=== PATIENT | female | born 1935 | race Caucasian/White ===

== ENCOUNTER 2025-09-29 12:13 | Inpatient (IN) | payer SELFPAY ==
[~2025-09-29] VITALS: Ht 152.4 cm; Wt 57.2 kg
[2025-09-29 12:17] VITALS: O2SAT 100
[2025-09-29] MEDS: KETOROLAC 15MG/ML VIAL IV ONE (13:20)
[2025-09-29 13:21] LABS: BASOPHILS % 0.4 % (0.0-2.0); EOSINOPHILS % 0.8 % (0.0-5.0); HEMATOCRIT. 46.4 % (36.0-48.0); HEMOGLOBIN. 15.1 g/dL (12.0-16.0); LYMPHOCYTES % 16.4 % (20.0-50.0); MEAN PLATELET VOLUME 9.8 fl (7.4-10.4); MONOCYTES % 7.5 % (2.0-8.0); NEUTROPHILS % 74.9 % (40.0-76.0); PLATELET 171 x1000/uL (130-400); RED BLOOD CELL COUNT 5.02 mill/uL (4.2-5.4); RED CELL DISTRIBUTION WIDTH 14.9 % (11.6-14.6)
[2025-09-29 13:33] LABS: INR 1.0
[2025-09-29 13:34] LABS: UREA NITROGEN BLOOD 30 mg/dL (9-23)
[2025-09-29 13:35] LABS: CREATININE 1.1 mg/dL (0.6-1.0)
[2025-09-29 13:36] LABS: ASPARTATE AMINOTRANSFERASE 20 IU/L (<34); BILIRUBIN TOTAL 0.9 mg/dL (0.1-1.0)
[2025-09-29 13:37] LABS: BILIRUBIN DIRECT 0.2 mg/dL (<=3.0); PROTEIN TOTAL 7.2 g/dL (6.0-8.3)
[2025-09-29] MEDS ORDERED: NALOXONE HCL 0.4MG/ML VIAL IV PRN (15:30)
[2025-09-29] MEDS ORDERED: IPRATROPIUM/ALBUTEROL 0.5-3(2.5)MG/3ML NEB HHN PRN (15:30)
[2025-09-29] MEDS ORDERED: DOCUSATE SODIUM 100MG CAPSULE PO PRN (15:30)
[2025-09-29] MEDS ORDERED: ACETAMINOPHEN 325MG TABLET PO PRN ×2 (15:30)
[2025-09-29] MEDS ORDERED: ONDANSETRON HCL 4MG/2ML INJ IV PRN (15:30)
[2025-09-29 20:00] VITALS: BP 123/58; PULSE 90; RESP 18; TEMP 36.2; O2SAT 95
[2025-09-29] MEDS: HYDROCODONE/ACETAMINOPHEN 5/325MG TABLET PO PRN (20:35)
[2025-09-29] MEDS: SODIUM CHLORIDE 0.9% 1,000 ML IV SCH (22:15)
[2025-09-29 22:20] VITALS: BP 125/58; PULSE 90; RESP 18; TEMP 36.2512
[2025-09-29] MEDS: MORPHINE SULFATE 4 MG/ML INJ (FOR IV/IM USE) IV PRN (23:06)
[2025-09-30] VITALS: BP 119/55; PULSE 79; RESP 19; TEMP 36.3; O2SAT 96
[2025-09-30 02:24] LABS: HEMATOCRIT. 39.6 % (36.0-48.0); HEMOGLOBIN. 13.0 g/dL (12.0-16.0); MEAN PLATELET VOLUME 9.5 fl (7.4-10.4); PLATELET 130 x1000/uL (130-400); RED BLOOD CELL COUNT 4.39 mill/uL (4.2-5.4); RED CELL DISTRIBUTION WIDTH 14.7 % (11.6-14.6)
[2025-09-30 04:00] VITALS: BP 111/63; PULSE 87; RESP 18; TEMP 36.7; O2SAT 95
[2025-09-30 04:11] LABS: BAND% 5.0 % (1.0-6.0); LYMPHOCYTES % MANUAL 7.0 % (20.0-60.0); MONOCYTES % MANUAL 3.0 % (2.0-8.0); NEUTROPHILS % MANUAL 85.0 % (45.0-75.0)
[2025-09-30 04:12] LABS: PLATELET ESTIMATE NORMAL
[2025-09-30 08:00] VITALS: BP 122/57; PULSE 78; RESP 12; TEMP 36.3; O2SAT 95
[2025-09-30 08:39] LABS: HEMATOCRIT. 39.5 % (36.0-48.0); HEMOGLOBIN. 12.9 g/dL (12.0-16.0); MEAN PLATELET VOLUME 9.0 fl (7.4-10.4); PLATELET 115 x1000/uL (130-400); RED BLOOD CELL COUNT 4.34 mill/uL (4.2-5.4); RED CELL DISTRIBUTION WIDTH 15.2 % (11.6-14.6)
[2025-09-30] MEDS: HEPARIN 5000 UNITS/ML VIAL SUBCUT SCH (08:58)
[2025-09-30 09:06] LABS: CREATININE 0.9 mg/dL (0.6-1.0); UREA NITROGEN BLOOD 36.0 mg/dL (9-23)
[2025-09-30] MEDS ORDERED: DEXTROSE 50% WATER 50ML SYRINGE IV PRN (11:00)
[2025-09-30 12:00] VITALS: BP 110/48; PULSE 97; RESP 14; TEMP 36.6; O2SAT 95
[2025-09-30] MEDS: BLOOD SUGAR DIAGNOSTIC STRIP TEST SCH (12:00)
[2025-09-30] MEDS: INSULIN LISPRO 100 UNITS/ML SUBCUT SCH (12:30)
[2025-09-30 14:50] LABS: BAND% 5.0 % (1.0-6.0); LYMPHOCYTES % MANUAL 5.0 % (20.0-60.0); MONOCYTES % MANUAL 4.0 % (2.0-8.0); NEUTROPHILS % MANUAL 86.0 % (45.0-75.0)
[2025-09-30 14:51] LABS: PLATELET ESTIMATE SLIGHTLY DECREASED
[2025-09-30 16:00] VITALS: BP 116/51; PULSE 104; RESP 18; TEMP 36.4; O2SAT 96
[2025-09-30] MEDS ORDERED: IOHEXOL-300 100 ML BOTTLE ONE (18:09)
[2025-09-30 20:00] VITALS: BP 122/78; PULSE 102; RESP 19; TEMP 36.7; O2SAT 95
[2025-10-01] VITALS: BP 124/50; PULSE 79; RESP 18; TEMP 36.3; O2SAT 97
[2025-10-01 04:00] VITALS: BP 120/51; PULSE 81; RESP 17; TEMP 36.4; O2SAT 95
[2025-10-01 06:18] LABS: BASOPHILS % 0.2 % (0.0-2.0); EOSINOPHILS % 0.6 % (0.0-5.0); HEMATOCRIT. 36.6 % (36.0-48.0); HEMOGLOBIN. 11.9 g/dL (12.0-16.0); LYMPHOCYTES % 8.9 % (20.0-50.0); MEAN PLATELET VOLUME 9.5 fl (7.4-10.4); MONOCYTES % 8.0 % (2.0-8.0); NEUTROPHILS % 82.3 % (40.0-76.0); PLATELET 87 x1000/uL (130-400); RED BLOOD CELL COUNT 3.97 mill/uL (4.2-5.4); RED CELL DISTRIBUTION WIDTH 15.4 % (11.6-14.6)
[2025-10-01 06:33] LABS: CREATININE 0.8 mg/dL (0.6-1.0)
[2025-10-01 06:34] LABS: UREA NITROGEN BLOOD 31 mg/dL (9-23)
[2025-10-01 08:00] VITALS: BP 119/49; PULSE 96; RESP 16; TEMP 36.7; O2SAT 95
[2025-10-01 12:00] VITALS: BP 116/54; PULSE 95; RESP 17; TEMP 36.2; O2SAT 98
[2025-10-01] MEDS ORDERED: DEXAMETHASONE 4MG/ML 1ML VIAL ONE (12:51)
[2025-10-01] MEDS ORDERED: PROPOFOL 200MG/20ML VIAL IV ONE (12:52)
[2025-10-01] MEDS ORDERED: FENTANYL CITRATE/PF 50MCG/ML 2ML VIAL ONE (13:00)
[2025-10-01] MEDS ORDERED: VANCOMYCIN HCL 1GM VIAL ONE (13:06)
[2025-10-01] MEDS ORDERED: LIDOCAINE HCL/EPINEPHRINE 1%-EPI 1:100,000 20ML VIAL ONE (13:06)
[2025-10-01] MEDS ORDERED: FELO2.5T25 MT (13:45)
[2025-10-01] MEDS ORDERED: TELM20TA8 MT (13:45)
[2025-10-01] MEDS ORDERED: METF-414 MT (13:45)
[2025-10-01] MEDS ORDERED: PROP150T11 MT (13:45)
[2025-10-01] MEDS ORDERED: ONDANSETRON HCL 4MG/2ML INJ IV PRN (13:45)
[2025-10-01] MEDS ORDERED: PROP40TA7 PO (13:45)
[2025-10-01] MEDS ORDERED: HYDROCODONE/ACETAMINOPHEN 5/325MG TABLET PO PRN ×2 (13:45→14:00)
[2025-10-01] MEDS ORDERED: HYDROMORPHONE HCL/PF 2MG/ML INJ IV PRN (13:45)
[2025-10-01] MEDS ORDERED: PHENYLEPHRINE HCL 10MG/ML 1ML IV ONE (14:12)
[2025-10-01] MEDS ORDERED: CEFAZOLIN SODIUM 1000MG/VIAL ONE (14:16)
[2025-10-01] MEDS ORDERED: TRANEXAMIC ACID 1000MG PREMIX 200 ML IV ONE (14:17)
[2025-10-01] MEDS ORDERED: FAMOTIDINE 20MG/2ML VIAL IV ONE (14:38)
[2025-10-01] MEDS ORDERED: ACETAMINOPHEN 1000MG/100ML 100 ML IV ONE (14:38)
[2025-10-01] MEDS ORDERED: HYDRALAZINE 20MG/ML VIAL IV PRN (16:30)
[2025-10-01] MEDS ORDERED: LABETALOL 5MG/ML 4ML INJ IV PRN (16:30)
[2025-10-01] MEDS ORDERED: ALBUTEROL (0.5%) 2.5MG/0.5ML NEB HHN NR (16:30)
[2025-10-01] MEDS ORDERED: HYDROMORPHONE HCL/PF 1MG/ML INJ IV PRN (16:30)
[2025-10-01] MEDS ORDERED: FENTANYL CITRATE/PF 50MCG/ML 2ML VIAL IV PRN (16:30)
[2025-10-01] MEDS: HYDROMORPHONE HCL/PF 1MG/ML INJ IV PRN (16:33)
[2025-10-01 17:15] VITALS: BP 121/47; PULSE 93; RESP 14; TEMP 36.7; O2SAT 96
[2025-10-01] MEDS: ONDANSETRON HCL 4MG/2ML INJ IV PRN (17:32)
[2025-10-01 20:00] VITALS: BP 111/41; PULSE 90; RESP 18; TEMP 36.2; O2SAT 76
[2025-10-01] MEDS: CEFAZOLIN 1000MG PREMIX 50 ML IV SCH (21:38)
[2025-10-02] VITALS: BP 131/47; PULSE 88; RESP 18; TEMP 36.1; O2SAT 96
[2025-10-02 04:00] VITALS: BP 126/51; PULSE 86; RESP 18; TEMP 36.1; O2SAT 96
[2025-10-02 07:38] LABS: BASOPHILS % 0.3 % (0.0-2.0); EOSINOPHILS % 1.6 % (0.0-5.0); HEMATOCRIT. 31.8 % (36.0-48.0); HEMOGLOBIN. 10.3 g/dL (12.0-16.0); LYMPHOCYTES % 7.6 % (20.0-50.0); MEAN PLATELET VOLUME 9.7 fl (7.4-10.4); MONOCYTES % 6.6 % (2.0-8.0); NEUTROPHILS % 83.9 % (40.0-76.0); PLATELET 102 x1000/uL (130-400); RED BLOOD CELL COUNT 3.46 mill/uL (4.2-5.4); RED CELL DISTRIBUTION WIDTH 15.4 % (11.6-14.6)
[2025-10-02 07:48] LABS: CREATININE 0.8 mg/dL (0.6-1.0)
[2025-10-02 07:49] LABS: UREA NITROGEN BLOOD 26 mg/dL (9-23)
[2025-10-02 08:00] VITALS: BP 143/57; PULSE 97; RESP 20; TEMP 36.6; O2SAT 95
[2025-10-02] MEDS ORDERED: TRAMADOL 50MG TABLET PO PRN (08:30)
[2025-10-02] MEDS ORDERED: MORPHINE SULFATE 2 MG/ML INJ (NOT FOR IM USE) IV PRN (09:15)
[2025-10-02] MEDS: HYDROCODONE/ACETAMINOPHEN 10/325MG TABLET PO PRN (11:37)
[2025-10-02 12:00] VITALS: BP 119/52; PULSE 107; RESP 20; TEMP 36.6; O2SAT 99
[2025-10-02 16:00] VITALS: BP 93/50; PULSE 80; RESP 20; TEMP 36.6; O2SAT 97
[2025-10-02] MEDS: APIXABAN 2.5 MG TABLET PO SCH (17:18)
[2025-10-02] MEDS ORDERED: SODIUM CHLORIDE 0.9% 500 ML IV NR (18:00)
[2025-10-02 20:00] VITALS: BP 111/50; PULSE 97; RESP 16; TEMP 36.4; O2SAT 97
[2025-10-02] MEDS: HYDROCODONE/ACETAMINOPHEN 5/325MG TABLET PO PRN (22:40)
[2025-10-03] VITALS: BP 109/40; PULSE 99; RESP 16; TEMP 37.1; O2SAT 97
[2025-10-03 04:00] VITALS: BP 117/35; PULSE 92; RESP 16; TEMP 36.7; O2SAT 95
[2025-10-03 07:36] LABS: BASOPHILS % 0.2 % (0.0-2.0); EOSINOPHILS % 2.0 % (0.0-5.0); HEMATOCRIT. 29.7 % (36.0-48.0); HEMOGLOBIN. 9.5 g/dL (12.0-16.0); LYMPHOCYTES % 11.9 % (20.0-50.0); MEAN PLATELET VOLUME 9.9 fl (7.4-10.4); MONOCYTES % 11.1 % (2.0-8.0); NEUTROPHILS % 74.8 % (40.0-76.0); PLATELET 91 x1000/uL (130-400); RED BLOOD CELL COUNT 3.22 mill/uL (4.2-5.4); RED CELL DISTRIBUTION WIDTH 15.5 % (11.6-14.6)
[2025-10-03 08:00] VITALS: BP 135/58; PULSE 93; RESP 17; TEMP 36.8; O2SAT 100
[2025-10-03 12:00] VITALS: BP 153/77; PULSE 72; RESP 18; TEMP 36.3; O2SAT 97
[2025-10-03 16:00] VITALS: BP 151/64; PULSE 96; RESP 17; TEMP 36.3; O2SAT 98
[2025-10-03 20:00] VITALS: BP 147/59; PULSE 93; RESP 16; TEMP 37.1; O2SAT 99
[2025-10-03] MEDS: CLONIDINE 0.1MG TABLET PO PRN (23:19)
[2025-10-04] VITALS: BP 115/46; PULSE 89; RESP 16; TEMP 36.3; O2SAT 97
[2025-10-04 04:00] VITALS: BP 108/53; PULSE 78; RESP 16; TEMP 36.6; O2SAT 98
[2025-10-04 06:35] LABS: BASOPHILS % 0.3 % (0.0-2.0); EOSINOPHILS % 3.0 % (0.0-5.0); HEMATOCRIT. 28.9 % (36.0-48.0); HEMOGLOBIN. 9.3 g/dL (12.0-16.0); LYMPHOCYTES % 13.6 % (20.0-50.0); MEAN PLATELET VOLUME 9.5 fl (7.4-10.4); MONOCYTES % 11.7 % (2.0-8.0); NEUTROPHILS % 71.4 % (40.0-76.0); PLATELET 110 x1000/uL (130-400); RED BLOOD CELL COUNT 3.13 mill/uL (4.2-5.4); RED CELL DISTRIBUTION WIDTH 14.8 % (11.6-14.6)
[2025-10-04 07:40] LABS: UREA NITROGEN BLOOD 15 mg/dL (9-23)
[2025-10-04 07:42] LABS: PHOSPHORUS 2.1 mg/dL (2.5-4.9)
[2025-10-04 08:00] VITALS: BP 136/57; PULSE 93; RESP 18; TEMP 36.6; O2SAT 100
[2025-10-04 08:18] LABS: CREATININE 0.5 mg/dL (0.6-1.0)
[2025-10-04] MEDS: MAGNESIUM 2 G PREMIX 50 ML IV ONE (10:16)
[2025-10-04 12:00] VITALS: BP 144/71; PULSE 98; RESP 18; TEMP 36.6; O2SAT 100
[2025-10-04] MEDS: SODIUM PHOSPHATE 20 MMOL in DEXT 5% WATER 243.3333 ML IV ONE (15:06)
[2025-10-04 16:00] VITALS: BP 145/56; PULSE 79; RESP 17; TEMP 36.6; O2SAT 100
[2025-10-04 20:00] VITALS: BP 134/49; PULSE 88; RESP 16; TEMP 36.7; O2SAT 98
[2025-10-05] VITALS: BP 124/56; PULSE 95; RESP 16; TEMP 36.6; O2SAT 98
[2025-10-05 04:00] VITALS: BP 114/50; PULSE 92; RESP 16; TEMP 36.9; O2SAT 98
[2025-10-05 08:00] VITALS: BP 147/62; PULSE 98; RESP 18; TEMP 36.9; O2SAT 99
[2025-10-05 12:00] VITALS: BP 150/68; PULSE 91; RESP 18; TEMP 36.3; O2SAT 98
[2025-10-05 16:00] VITALS: BP 145/65; PULSE 91; RESP 19; TEMP 36.2; O2SAT 97
[2025-10-05 20:00] VITALS: BP 137/59; PULSE 85; RESP 18; TEMP 37.2; O2SAT 97
[2025-10-06] VITALS: BP 124/60; PULSE 82; RESP 16; TEMP 36.9; O2SAT 98
[2025-10-06 04:00] VITALS: BP 141/65; PULSE 91; RESP 19; TEMP 37.7; O2SAT 97
[2025-10-06 08:00] VITALS: BP 105/69; PULSE 80; RESP 16; TEMP 36.5; O2SAT 99
[2025-10-06 12:00] VITALS: BP 108/66; PULSE 72; RESP 18; TEMP 36.2; O2SAT 98
[2025-10-06 16:00] VITALS: BP 133/59; PULSE 90; RESP 16; TEMP 36.6; O2SAT 98
[2025-10-06 20:00] VITALS: BP 129/61; PULSE 86; RESP 16; TEMP 37.5; O2SAT 98
[2025-10-07] VITALS: BP 133/57; PULSE 92; RESP 18; TEMP 37.3; O2SAT 95
[2025-10-07 04:00] VITALS: BP 122/54; PULSE 90; RESP 17; TEMP 37.2; O2SAT 96
[2025-10-07 08:00] VITALS: BP 127/61; PULSE 85; RESP 18; TEMP 36.7; O2SAT 99
[2025-10-07 12:00] VITALS: BP 126/53; PULSE 91; RESP 17; TEMP 36.7; O2SAT 99
[2025-10-07 16:00] VITALS: BP 135/62; PULSE 90; RESP 18; TEMP 36.3; O2SAT 98
[2025-10-07] MEDS ORDERED: NALOXONE HCL 0.4MG/ML VIAL IV PRN (16:15)
[2025-10-07] MEDS: HYDROCODONE/ACETAMINOPHEN 5/325MG TABLET PO PRN (17:16)
[2025-10-07 20:00] VITALS: BP 139/61; PULSE 83; RESP 16; TEMP 36.7; O2SAT 97
[2025-10-08] VITALS: BP 133/49; PULSE 97; RESP 16; TEMP 36.2; O2SAT 98
[2025-10-08 04:00] VITALS: BP 114/49; PULSE 82; RESP 16; TEMP 36.7; O2SAT 96
[2025-10-08 07:48] LABS: PHOSPHORUS 3.7 mg/dL (2.5-4.9)
[2025-10-08 08:00] VITALS: BP 133/89; PULSE 96; RESP 16; TEMP 36.6; O2SAT 99
[2025-10-08 12:00] VITALS: BP 124/54; PULSE 93; RESP 16; TEMP 36.6; O2SAT 98
[2025-10-08 16:00] VITALS: BP 127/57; PULSE 67; PULSE 89; RESP 16; TEMP 36.4; TEMP 36.6; O2SAT 99
[2025-10-08 20:00] VITALS: BP 124/42; PULSE 95; RESP 18; TEMP 36.6; O2SAT 96
[2025-10-08] MEDS: LACTULOSE 20G/30ML UDC PO SCH (22:00)
[2025-10-09] VITALS (7 sets, daily range): BP systolic 116–151; BP diastolic 47–73; PULSE 87–100; RESP 16–18; TEMP 36.4–36.6; O2SAT 93–98
[2025-10-09 00:52] LABS: BASOPHILS % 0.5 % (0.0-2.0); EOSINOPHILS % 2.6 % (0.0-5.0); HEMATOCRIT. 30.1 % (36.0-48.0); HEMOGLOBIN. 10.0 g/dL (12.0-16.0); LYMPHOCYTES % 13.1 % (20.0-50.0); MEAN PLATELET VOLUME 8.8 fl (7.4-10.4); MONOCYTES % 11.4 % (2.0-8.0); NEUTROPHILS % 72.4 % (40.0-76.0); PLATELET 269 x1000/uL (130-400); RED BLOOD CELL COUNT 3.30 mill/uL (4.2-5.4); RED CELL DISTRIBUTION WIDTH 14.5 % (11.6-14.6)
[2025-10-09 01:02] LABS: CREATININE 0.7 mg/dL (0.6-1.0)
[2025-10-09 01:03] LABS: UREA NITROGEN BLOOD 20 mg/dL (9-23)
[2025-10-09 01:04] LABS: ASPARTATE AMINOTRANSFERASE 15 IU/L (<34)
[2025-10-09 01:05] LABS: BILIRUBIN TOTAL 0.9 mg/dL (0.1-1.0); PROTEIN TOTAL 5.8 g/dL (6.0-8.3)
[2025-10-09] MEDS ORDERED: TOPUD PO (10:20)
[2025-10-09] MEDS ORDERED: APIX2.5T MT (10:20)
[2025-10-09] MEDS ORDERED: HYDR-4001 MT (10:20)
== END 2025-10-09 17:59 | disposition home or self-care (01) | DRG 308 ==
LOC: ER 12:13 → EDBEDREQ 12:32 → EDBEDREQTM 14:28 → EDBEDREQ 14:28 → ENRESERV 16:54 → 8EST 17:13 → 5WST 10-02 19:51
PROVIDERS: ADMIT Internal Medicine; ATTEND Internal Medicine
PROC: 0QH606Z Insertion of Intramedullary Internal Fixation Device into Right Upper Femur, Open Approach (ICD-10-PCS; principal; 2025-10-01)
PROC: 30233R1 Transfusion of Nonautologous Platelets into Peripheral Vein, Percutaneous Approach (ICD-10-PCS; 2025-10-01)
DX: S72.141A Displaced intertrochanteric fracture of right femur, initial encounter for closed fracture (principal); K76.89 Other specified diseases of liver; D69.6 Thrombocytopenia, unspecified; N17.9 Acute kidney failure, unspecified; I10 Essential (primary) hypertension; E11.9 Type 2 diabetes mellitus without complications; K80.50 Calculus of bile duct without cholangitis or cholecystitis without obstruction; R14.0 Abdominal distension (gaseous); W10.9XXA Fall (on) (from) unspecified stairs and steps, initial encounter; N28.1 Cyst of kidney, acquired; K76.0 Fatty (change of) liver, not elsewhere classified; Z90.49 Acquired absence of other specified parts of digestive tract; Y93.89 Activity, other specified; Y92.89 Other specified places as the place of occurrence of the external cause; Y99.8 Other external cause status
CPT/HCPCS: 36415; 73502; 73552; 74177; 76000; 80048; 80053; 80076; 82962; 83036; 83735; 84100; 84145; 85025; 86850; 86900; 93005; 93306; 93970; 96374; 96375; 97110; 97116; 97162; 97166; 97530; 99285; A4606; J0690; J1100; J1171; J1308; J1644; J1815; J1885; J2004; J2270; J2371; J2405; J2704; J3010; J3373; J3475; J3490; J7030; J7060; P9034; Q9967; C1713; J0131